=== PATIENT | male | born 1935 | race Caucasian/White ===

== ENCOUNTER 2017-07-29 08:31 | Inpatient (IN) | payer MEDICARE, BC ==
[2017-07-28 15:28] LABS: BASOPHILS % (AUTO) 0.5 % (0-1); EOSINOPHILS # (AUTO) 0.2 X10'3 (0-0.9); EOSINOPHILS % (AUTO) 2.4 % (0-6); LYMPHOCYTES # (AUTO) 1.3 X10'3 (1.1-4.8); LYMPHOCYTES % (AUTO) 20.3 % (21-51); MEAN CORPUSCULAR HEMOGLOBIN 32.2 PG (27.0-31.0); MEAN CORPUSCULAR HGB CONC 33.3 % (33.0-36.5); MEAN CORPUSCULAR VOLUME 96.8 FL (78-98); MEAN PLATELET VOLUME 7.8 FL (7.4-10.4); MONOCYTES # (AUTO) 0.5 X10'3 (0-0.9); MONOCYTES % (AUTO) 8.2 % (2-12); NEUTROPHILS # (AUTO) 4.5 X10'3 (1.8-7.7); NEUTROPHILS % (AUTO) 68.6 % (42-75); PRE OP HEMATOCRIT 44.2 % (42.0-52.0); PRE OP HEMOGLOBIN 14.7 g/dL (14.0-17.9); PRE OP PLATELET COUNT 188 X10'3 (140-440); RED BLOOD COUNT 4.56 X10'6 (4.70-6.10); RED CELL DISTRIBUTION WIDTH 13.1 % (11.5-14.5)
[2017-07-28 15:43] LABS: ALBUMIN 4.1 G/DL (3.4-5.0); ALBUMIN/GLOBULIN RATIO 1.1 (1.1-1.5); ALKALINE PHOSPHATASE 62 IU/L (46-116); BLOOD UREA NITROGEN 12 MG/DL (7-18); BUN/CREATININE RATIO 10.8 (5.4-32.0); CALCIUM 10.2 MG/DL (8.5-10.1); CHLORIDE 105 MMOL/L (99-107); CREATININE 1.11 MG/DL (0.60-1.10); PRE OP ALT 41 U/L (30-65); PRE OP ANION GAP 5 (8-16); PRE OP AST 31 U/L (10-37); PRE OP BILIRUB, TOTAL 0.6 MG/DL (0.0-1.0); PRE OP GLUCOSE 137 MG/DL (70-104); PRE OP POTASSIUM 3.9 MMOL/L (3.4-5.1); PRE OP SODIUM 143 MMOL/L (135-145); TOTAL CARBON DIOXIDE 32.8 MMOL/L (24-32); TOTAL PROTEIN 7.8 G/DL (6.4-8.2); eGFR 64 ML/MIN
[2017-07-29] VITALS (13 sets, daily range): BP systolic 133–181; BP diastolic 53–89
[~2017-07-29] VITALS: Ht 172.7 cm; Wt 78.0 kg
[~2017-07-29 08:31] MED LIST: ASPI-1265 PO; AZEL137S4 BOTHNARES; CALC-1197 PO; FOLI0.4T2 PO; LACT1CAP65 PO; LEVO25TA2 PO; LOSA25TA21 PO; LOVA40TA2 PO; PSYL0.5215; ceFAZolin inj. 2,000 MG in dextrose 5%-water 100 ML IV ONE; famotidine 20mg tablet PO ONE; ringers solution, lacted 1,000 ML IV SCH
[2017-07-29] MEDS ORDERED: ceFAZolin 1000mg inj ONE (10:05)
[2017-07-29] MEDS ORDERED: BUPIVAcaine/PF 2.5 mg/ml (0.25%) 30ml vial ONE (10:05)
[2017-07-29] MEDS ORDERED: epiNEPHrine 1 mg/ml inj ONE (10:05)
[2017-07-29] MEDS ORDERED: fentaNYL/PF 50MCG/1 ML 2ML syringe ONE ×2 (10:24→12:16)
[2017-07-29] MEDS ORDERED: rocuronium 10mg/ml inj IV ONE (10:25)
[2017-07-29] MEDS ORDERED: LIDOcaine 2% (20mg/ml) 5ml vial ONE (10:25)
[2017-07-29] MEDS ORDERED: propofol inj 20 ML IV ONE (10:25)
[2017-07-29] MEDS ORDERED: sevoflurane 250ml liquid IH ONE (11:45)
[2017-07-29] MEDS ORDERED: glycopyrrolate 0.2mg/ml inj ONE (12:25)
[2017-07-29] MEDS ORDERED: ePHEDrine 50MG/ML INJ. ONE (12:26)
[2017-07-29] MEDS ORDERED: atropine 0.4 mg/ml 20ml vial ONE (12:26)
[2017-07-29] MEDS ORDERED: phenylephrine 10mg/ml inj IV ONE (12:26)
[2017-07-29] MEDS ORDERED: ondansetron/PF 4mg/2ml inj ONE (12:26)
[2017-07-29] MEDS ORDERED: neostigmine methylsulfate 1 MG/ML 10ml vial ONE ×2 (12:27)
[2017-07-29] MEDS: HYDROcodone/acetaminophen 5mg/325mg tablet PO PRN (13:12)
[2017-07-29] MEDS ORDERED: morphine/NS 5 mg/ml CADD 50 ML IV SCH (13:30)
[2017-07-29] MEDS ORDERED: naloxone 0.4 mg/ml inj IV PRN (13:35)
[2017-07-29] MEDS ORDERED: CADD PCA waste documentation MC SCH (13:35)
[2017-07-29] MEDS: Potassium Cl inj 20 MEQ in ringers solution, lacted 1,000 ML IV SCH ×2 (14:16→22:43)
[2017-07-29] MEDS: morphine/NS 5 mg/ml CADD 50 ML IV SCH ×4 (17:00→23:00)
[2017-07-29] MEDS ORDERED: enalaprilat dihydrate 2.5mg/2ml vial IV PRN (20:20)
[2017-07-30] VITALS (14 sets, daily range): BP systolic 136–189; BP diastolic 71–97
[2017-07-30] MEDS: morphine/NS 5 mg/ml CADD 50 ML IV SCH ×12 (01:00→23:00)
[2017-07-30 05:17] LABS: BASOPHILS % (AUTO) 0.2 % (0-1); EOSINOPHILS # (AUTO) 0.1 X10'3 (0-0.9); EOSINOPHILS % (AUTO) 1.1 % (0-6); HEMATOCRIT 38.9 % (42.0-52.0); HEMOGLOBIN 13.1 g/dl (14.0-17.9); LYMPHOCYTES % (AUTO) 12.5 % (21-51); MEAN CORPUSCULAR HEMOGLOBIN 32.5 PG (27.0-31.0); MEAN CORPUSCULAR HGB CONC 33.8 % (33.0-36.5); MEAN CORPUSCULAR VOLUME 95.9 FL (78-98); MEAN PLATELET VOLUME 7.9 FL (7.4-10.4); MONOCYTES # (AUTO) 0.7 X10'3 (0-0.9); MONOCYTES % (AUTO) 9.2 % (2-12); NEUTROPHILS # (AUTO) 6.1 X10'3 (1.8-7.7); PLATELET COUNT 148 X10'3 (140-440); RED BLOOD COUNT 4.05 X10'6 (4.70-6.10); RED CELL DISTRIBUTION WIDTH 12.8 % (11.5-14.5); WHITE BLOOD COUNT 7.9 X10'3 (4.5-11.0)
[2017-07-30] MEDS: Potassium Cl inj 20 MEQ in ringers solution, lacted 1,000 ML IV SCH (06:34)
[2017-07-30] MEDS: levoTHYROXINE 25mcg tablet PO SCH (07:36)
[2017-07-30] MEDS: ondansetron/PF 4mg/2ml inj IV PRN (10:23)
[2017-07-30] MEDS: normal saline 1000ml 1,000 ML IV SCH (10:23)
[2017-07-30] MEDS: losartan 25mg tablet PO SCH (12:43)
[2017-07-31] VITALS: BP 151/91
[2017-07-31] MEDS: morphine/NS 5 mg/ml CADD 50 ML IV SCH ×12 (01:00→23:00)
[2017-07-31 06:35] LABS: ALBUMIN 3.4 G/DL (3.4-5.0); ANION GAP 7 (8-16); BLOOD UREA NITROGEN 7 MG/DL (7-18); BUN/CREATININE RATIO 7.6 (5.4-32.0); CALCIUM 9.2 MG/DL (8.5-10.1); CHLORIDE 101 MMOL/L (99-107); CREATININE 0.92 MG/DL (0.60-1.10); GLUCOSE 111 MG/DL (70-104); MAGNESIUM 1.7 MG/DL (1.5-2.4); POTASSIUM 3.8 MMOL/L (3.5-5.1); SODIUM 138 MMOL/L (135-145); TOTAL CARBON DIOXIDE 29.6 MMOL/L (24-32); eGFR 79 ML/MIN
[2017-07-31 07:24] VITALS: BP 183/107
[2017-07-31 07:33] LABS: BASOPHILS % (AUTO) 0.1 % (0-1); EOSINOPHILS % (AUTO) 0.4 % (0-6); HEMATOCRIT 42.6 % (42.0-52.0); HEMOGLOBIN 14.9 g/dl (14.0-17.9); LYMPHOCYTES # (AUTO) 0.7 X10'3 (1.1-4.8); LYMPHOCYTES % (AUTO) 9.1 % (21-51); MEAN CORPUSCULAR HEMOGLOBIN 32.9 PG (27.0-31.0); MEAN PLATELET VOLUME 8.6 FL (7.4-10.4); MONOCYTES # (AUTO) 0.7 X10'3 (0-0.9); MONOCYTES % (AUTO) 8.6 % (2-12); NEUTROPHILS # (AUTO) 6.5 X10'3 (1.8-7.7); NEUTROPHILS % (AUTO) 81.8 % (42-75); PLATELET COUNT 156 X10'3 (140-440); RED BLOOD COUNT 4.53 X10'6 (4.70-6.10); RED CELL DISTRIBUTION WIDTH 11.9 % (11.5-14.5); WHITE BLOOD COUNT 7.9 X10'3 (4.5-11.0)
[2017-07-31] MEDS: levoTHYROXINE 25mcg tablet PO SCH (07:39)
[2017-07-31] MEDS: losartan 25mg tablet PO SCH (07:39)
[2017-07-31] MEDS ORDERED: mag hydrox/Alum hydrox/simeth 30ml oral suspension PO PRN (08:00)
[2017-07-31] MEDS ORDERED: metoclopramide 10mg tablet PO PRN (08:35)
[2017-07-31] MEDS: pantoprazole 40mg Tablet.DR PO SCH (09:48)
[2017-07-31 10:00] VITALS: BP 149/118
[2017-07-31 11:00] VITALS: BP 151/82
[2017-07-31] MEDS ORDERED: magnesium hydroxide 30ml (MOM) UD suspension PO PRN (14:30)
[2017-07-31 20:00] VITALS: BP 141/102
[2017-07-31] MEDS: hyDRALAzine 10mg tablet PO SCH (21:59)
[2017-07-31] MEDS ORDERED: LORazepam 2 mg/ml vial IV PRN (22:20)
[2017-07-31] MEDS: ondansetron/PF 4mg/2ml inj IV PRN (22:30)
[2017-08-01] VITALS: BP 136/85
[2017-08-01] MEDS: morphine/NS 5 mg/ml CADD 50 ML IV SCH ×10 (01:00→19:00)
[2017-08-01] MEDS ORDERED: normal saline 500ml IV soln 1,000 ML IV ONE (03:30)
[2017-08-01] MEDS: normal saline 1000ml 1,000 ML IV SCH ×3 (03:39→16:55)
[2017-08-01 06:12] LABS: BASOPHILS % (AUTO) 0.3 % (0-1); EOSINOPHILS % (AUTO) 0 % (0-6); HEMATOCRIT 44.9 % (42.0-52.0); HEMOGLOBIN 15.1 g/dl (14.0-17.9); LYMPHOCYTES # (AUTO) 0.8 X10'3 (1.1-4.8); LYMPHOCYTES % (AUTO) 7.4 % (21-51); MEAN CORPUSCULAR HEMOGLOBIN 32.5 PG (27.0-31.0); MEAN CORPUSCULAR HGB CONC 33.6 % (33.0-36.5); MEAN CORPUSCULAR VOLUME 96.7 FL (78-98); MEAN PLATELET VOLUME 8.2 FL (7.4-10.4); MONOCYTES # (AUTO) 0.8 X10'3 (0-0.9); MONOCYTES % (AUTO) 7.6 % (2-12); NEUTROPHILS % (AUTO) 84.7 % (42-75); PLATELET COUNT 174 X10'3 (140-440); RED BLOOD COUNT 4.64 X10'6 (4.70-6.10); RED CELL DISTRIBUTION WIDTH 12.6 % (11.5-14.5); WHITE BLOOD COUNT 10.6 X10'3 (4.5-11.0)
[2017-08-01 06:40] LABS: ALBUMIN 3.5 G/DL (3.4-5.0); ANION GAP 10 (8-16); BLOOD UREA NITROGEN 12 MG/DL (7-18); BUN/CREATININE RATIO 10.9 (5.4-32.0); CALCIUM 9.4 MG/DL (8.5-10.1); CHLORIDE 100 MMOL/L (99-107); GLUCOSE 126 MG/DL (70-104); MAGNESIUM 2.1 MG/DL (1.5-2.4); PHOSPHORUS 2.4 MG/DL (2.3-4.5); POTASSIUM 3.6 MMOL/L (3.5-5.1); SODIUM 140 MMOL/L (135-145); TOTAL CARBON DIOXIDE 30.2 MMOL/L (24-32); eGFR 64 ML/MIN
[2017-08-01 07:00] VITALS: BP 133/78
[2017-08-01] MEDS: losartan 25mg tablet PO SCH (07:47)
[2017-08-01] MEDS: pantoprazole 40mg Tablet.DR PO SCH (07:47)
[2017-08-01] MEDS: levoTHYROXINE 25mcg tablet PO SCH (07:48)
[2017-08-01 12:00] VITALS: BP 123/80
[2017-08-01 20:00] VITALS: BP 140/85
[2017-08-01] MEDS: hyDRALAzine 10mg tablet PO SCH (21:35)
[2017-08-02] VITALS: BP 124/76
[2017-08-02] MEDS: HYDROcodone/acetaminophen 5mg/325mg tablet PO PRN (05:34)
[2017-08-02] MEDS: normal saline 1000ml 1,000 ML IV SCH (06:15)
[2017-08-02 06:55] VITALS: BP 134/85
[2017-08-02 07:38] LABS: BASOPHILS % (AUTO) 0.1 % (0-1); EOSINOPHILS # (AUTO) 0.3 X10'3 (0-0.9); EOSINOPHILS % (AUTO) 4.4 % (0-6); HEMATOCRIT 37.2 % (42.0-52.0); HEMOGLOBIN 12.6 g/dl (14.0-17.9); LYMPHOCYTES # (AUTO) 0.8 X10'3 (1.1-4.8); LYMPHOCYTES % (AUTO) 10.5 % (21-51); MEAN CORPUSCULAR HEMOGLOBIN 32.7 PG (27.0-31.0); MEAN CORPUSCULAR VOLUME 96.1 FL (78-98); MEAN PLATELET VOLUME 7.9 FL (7.4-10.4); MONOCYTES # (AUTO) 0.8 X10'3 (0-0.9); MONOCYTES % (AUTO) 10.6 % (2-12); NEUTROPHILS # (AUTO) 5.5 X10'3 (1.8-7.7); NEUTROPHILS % (AUTO) 74.4 % (42-75); PLATELET COUNT 174 X10'3 (140-440); RED BLOOD COUNT 3.87 X10'6 (4.70-6.10); RED CELL DISTRIBUTION WIDTH 12.5 % (11.5-14.5); WHITE BLOOD COUNT 7.4 X10'3 (4.5-11.0)
[2017-08-02] MEDS: levoTHYROXINE 25mcg tablet PO SCH (08:18)
[2017-08-02] MEDS: pantoprazole 40mg Tablet.DR PO SCH (08:18)
[2017-08-02] MEDS: losartan 25mg tablet PO SCH (08:18)
[2017-08-02 08:19] LABS: ALBUMIN 2.9 G/DL (3.4-5.0); ANION GAP 6 (8-16); BLOOD UREA NITROGEN 12 MG/DL (7-18); BUN/CREATININE RATIO 13.5 (5.4-32.0); CHLORIDE 104 MMOL/L (99-107); CREATININE 0.89 MG/DL (0.60-1.10); GLUCOSE 103 MG/DL (70-104); PHOSPHORUS 1.7 MG/DL (2.3-4.5); POTASSIUM 3.7 MMOL/L (3.5-5.1); SODIUM 139 MMOL/L (135-145); TOTAL CARBON DIOXIDE 29.5 MMOL/L (24-32); eGFR 82 ML/MIN
[2017-08-02 11:30] VITALS: BP 162/87
== END 2017-08-02 13:27 | disposition home or self-care (01) | DRG 357 ==
LOC: PAS 08:31 → ICU 2S 12:49 → MED 3N 07-30 11:35
PROVIDERS: ADMIT Surgery; ATTEND Internal Medicine Critical Care Medicine
PROC: 5A12012 Performance of Cardiac Output, Single, Manual (ICD-10-PCS; 2017-07-29)
PROC: 0WBH0ZZ Excision of Retroperitoneum, Open Approach (ICD-10-PCS; principal; 2017-07-29 11:39)
DX: R19.00 Intra-abdominal and pelvic swelling, mass and lump, unspecified site (principal); I97.711 Intraoperative cardiac arrest during other surgery; Z95.1 Presence of aortocoronary bypass graft; I10 Essential (primary) hypertension; M19.90 Unspecified osteoarthritis, unspecified site; Z95.2 Presence of prosthetic heart valve; Z88.7 Allergy status to serum and vaccine; Z88.8 Allergy status to other drugs, medicaments and biological substances; Z79.82 Long term (current) use of aspirin; Z79.899 Other long term (current) drug therapy; Z87.891 Personal history of nicotine dependence; Z80.1 Family history of malignant neoplasm of trachea, bronchus and lung; Y83.8 Other surgical procedures as the cause of abnormal reaction of the patient, or of later complication, without mention of misadventure at the time of the procedure; Y92.234 Operating room of hospital as the place of occurrence of the external cause
CPT/HCPCS: 36415; 80048; 80053; 83735; 84100; 84443; 85025; 87070; 88305; A4315; A6213; A6255; A7000; J0171; J0461; J0690; J2001; J2060; J2270; J2370; J2405; J2704; J2710; J3010; J3480; J3490; J7030; J7060; J7120; J8597